=== PATIENT | female | born 1975 | race American Indian/Alaskan Native ===

== ENCOUNTER 2018-11-08 03:32 | Emergency (ER) | payer OTHER ==
[2018-11-08 03:32] VITALS: BMI 34.4
[2018-11-08] MEDS ORDERED: Potassium Chloride 20 mEq ER Tab PO ONE (03:51)
[2018-11-08] MEDS ORDERED: Sodium Chloride 0.9% 1,000 ML IV ONE (03:57)
[2018-11-08] MEDS ORDERED: DiphenhydrAMINE 50 mg/ml Inj IVP STA ×2 (04:25→05:54)
[2018-11-08 04:27] LABS: BASO % 0.5 % (0.0-2.0); EOS # 0.1 K/uL (0.0-0.7); EOS % 3.4 % (0.0-4.0); HEMOGLOBIN 11.7 g/dL (11.0-16.0); LYMPH # 1.8 K/uL (1.0-4.3); LYMPH % 41.9 % (20.0-40.0); MEAN CELL VOLUME 72.6 fL (81.0-99.0); MEAN CORPUSCULAR HGB CONC 31.6 g/dL (33.0-37.0); MEAN PLATELET VOLUME 8.3 fL (7.2-11.7); MONO # 0.4 K/uL (0.0-0.8); MONO % 8.4 % (0.0-10.0); NEUT % 45.8 % (50.0-75.0); NRBC % 0.1 % (0.0-2.0); RBC 5.1 Mil/uL (3.80-5.20); RED CELL DISTRIBUTION WIDTH 15.6 % (11.5-14.5); WHITE BLOOD COUNT 4.4 K/uL (4.8-10.8)
[2018-11-08] MEDS ORDERED: DiphenhydrAMINE 50 mg/ml Inj ONE ×2 (04:29→05:56)
[2018-11-08 04:38] LABS: HCG,QUALITATIVE URINE NEGATIVE (NEGATIVE)
[2018-11-08 04:40] LABS: SQUAMOUS EPITHIAL 4 /hpf (0-5); URINE BACTERIA RARE (<OCC); URINE BILIRUBIN NEGATIVE (NEGATIVE); URINE BLOOD 1+ (NEGATIVE); URINE CLARITY Hazy (Clear); URINE COLOR Yellow (YELLOW); URINE GLUCOSE (UA) NORMAL (Normal); URINE LEUKOCYTE ESTERASE 1+ Leu/uL (Negative); URINE PROTEIN NEGATIVE (NEGATIVE); URINE UROBILINOGEN NORMAL mg/dL (0.2-1.0)
[2018-11-08 04:47] LABS: BLOOD UREA NITROGEN 10 mg/dL (7-17); CALCIUM 9.7 mg/dl (8.6-10.4); GFR NON-AFRICAN AMERICAN > 60; LIPASE 136 U/L (23-300)
--- NOTE | 2018-11-08 04:52 | C.PDOC ---
History Of Present Illness 43 year old female presents to the ER with a complaint of left flank pain that radiates to the LLQ for the past 2 days associated with nausea and vomiting. Patient has past Hx of kidney stone, kidney infection, and cysts removed from kidneys in the past. Denies dysuria, hematuria, or fever. Time Seen by Provider: 11/08/18 03:46 Chief Complaint (Nursing): Back Pain History Per: Patient History/Exam Limitations: no limitations Onset/Duration Of Symptoms: Days (2) Current Symptoms Are (Timing): Still Present Quality Of Discomfort: Unable To Describe Recent travel outside of the [place]: No Past Medical History Reviewed: Historical Data, Nursing Documentation, Vital Signs Vital Signs: Last Vital Signs Temp 98.3 F 11/08/18 03:41 Pulse 90 11/08/18 03:41 Resp 14 11/08/18 03:41 BP 130/85 11/08/18 03:41 Pulse Ox 98 11/08/18 03:41 - Medical History PMH: Anemia, Crohn's Disease (states she was tested but not diagnosed), Gastritis, Gall Bladder Disease, Kidney Stones (Lt. renal cyst), Chronic Kidney Disease Surgical History: Cholecystectomy, Endoscopy - [facility] Procedures NEBULIZER THERAPY (10/29/07) Family History: States: Unknown Family Hx - Social History Hx Tobacco Use: No Hx Alcohol Use: No Hx Substance Use: No - Immunization History Hx Tetanus Toxoid Vaccination: No Hx Influenza Vaccination: No Hx Pneumococcal Vaccination: Yes Review Of Systems Constitutional: Negative for: Fever, Chills Gastrointestinal: Positive for: Nausea, Vomiting Genitourinary: Negative for: Dysuria, Hematuria Musculoskeletal: Positive for: Other (Left flank pain radiating to LLQ) Physical Exam - Physical Exam Appears: Non-toxic Skin: Normal Color, Warm, Dry Head: Atraumatic, Normacephalic Eye(s): bilateral: Normal Inspection Oral Mucosa: Moist Chest: Symmetrical, No Tenderness Cardiovascular: Rhythm Regular Respiratory: Normal Breath Sounds, No Rales, No Rhonchi, No Wheezing Gastrointestinal/Abdominal: Soft, Tenderness (LLQ, suprapubic), No Guarding, No Rebound Back: CVA Tenderness (Left) Neurological/Psych: Oriented x3, Normal Speech ED Course And Treatment - Laboratory Results Result Diagrams: 11/08/18 04:22 11/08/18 04:22 O2 Sat by Pulse Oximetry: 98 (Room air) Pulse Ox Interpretation: Normal - CT Scan/US CT abd/pel Other Rad Studies (CT/US): Read By Radiologist, Radiology Report Reviewed CT/US Interpretation: CT SCAN OF THE ABDOMEN AND PELVIS WITHOUT ORAL OR IV CONTRAST. CLINICAL INDICATION: Left-sided abdominal pain. TECHNIQUE: Axial and reformatted sagittal and coronal images of the abdomen pelvis obtained without IV contrast administration. COMPARISON: 10/17/2016. FINDINGS: The visualized lung bases are unremarkable. Normal unenhanced liver. Surgically absent gallbladder and nondilated extrahepatic biliary system. Normal unenhanced spleen. Normal pancreas. . Normal bilateral adrenal glands. Normal size of the right kidney. There is no right renal mass. There are no right renal calculi. There is no right hydronephrosis. Normal visualized right ureter. Normal size of the left kidney. There is no left renal mass. There are no left renal calculi. There is mild left hydronephrosis. Normal visualized left ureter. Normal visualized stomach. Normal small intestine. Uncomplicated diverticulosis of the colon. The appendix is visualized and appears normal. There is no demonstrated peritoneal fluid. Normal abdominal aorta. Normal inferior vena cava. Normal retroperitoneum. . Normal urinary bladder. There is no pelvic mass lesion or lymphadenopathy. There is no pelvic fluid. . Normal abdominal wall. Normal osseous structures. IMPRESSION: Mild left hydronephrosis, unchanged. 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 Progress Note: Blood work, urinalysis, and CT abd/pel ordered, results were reviewed with no acute symptoms. IV fluids, zofran, toradol administered. Patient is requesting benadryl for itching due to her chronic eczema. Pt is resting comfortably in the ER in no acute distress, tolerating PO, vitals are stable, will discharge home with Rx and instructions to follow up with PMD/ Urologist or return if symptoms worsen. Reevaluation Time: 06:15 Reassessment Condition: Improved Disposition Counseled Patient/Family Regarding: Diagnosis, Need For Followup, Rx Given - Disposition Referrals: Jensen Drake MD [Staff Provider] - Disposition: HOME/ ROUTINE Disposition Time: 06:09 Condition: STABLE Additional Instructions: Increase PO fluids Take medications as directed Follow up with Urologist Return to ER if worse Prescriptions: Naproxen [Naprosyn] 1 tab PO BID PRN #20 tab PRN Reason: Pain Ondansetron ODT [Zofran ODT] 1 odt PO BID PRN #6 odt PRN Reason: Nausea/Vomiting Instructions: Low Back Pain in Adults Forms: [facility] (Tunisian) - Clinical Impression Clinical Impression: Left flank pain - PA / ELECTRIC METER INSPECTOR / Resident Statement MD/DO has reviewed & agrees with the documentation as recorded. - Scribe Statement The provider has reviewed the documentation as recorded by the Scribdiana Serrano All medical record entries made by the Jewelsibdiana were at my direction and personally dictated by me. I have reviewed the chart and agree that the record accurately reflects my personal performance of the history, physical exam, medical decision making, and the department course for this patient. I have also personally directed, reviewed, and agree with the discharge instructions and disposition.
[2018-11-08] MEDS ORDERED: Morphine 4 MG/ML VIAL IV ONE (05:04)
[2018-11-08 05:42] LABS: ALB/GLOB RATIO 1.3 (1.0-2.1); ALT/SGPT 16 U/L (9-52); AST/SGOT 33 U/L (14-36)
[2018-11-08 05:59] VITALS: BP 136/86; PULSE 91; RESP 19; TEMP 97.7
[2018-11-08 06:11] VITALS: O2SAT 98
--- NOTE | 2018-11-08 09:42 | CT ---
Date of service: 11/08/2018 PROCEDURE: CT Abdomen and Pelvis without intravenous contrast HISTORY: left flank pain COMPARISON: 10/17/2016. TECHNIQUE: CT scan of the abdomen and pelvis was performed without administration of intravenous contrast. Oral contrast was not administered. Coronal and sagittal reformatted images were obtained. . Radiation dose: Total exam DLP = 847.25 mGy-cm. This CT exam was performed using one or more of the following dose reduction techniques: Automated exposure control, adjustment of the mA and/or kV according to patient size, and/or use of iterative reconstruction technique. FINDINGS: LOWER THORAX: The visualized lungs are clear. LIVER: Normal in size. There is redemonstration of a well-circumscribed round subcentimeter hypodensity in the left hepatic lobe stable since the prior examination. No intrahepatic ductal dilatation. GALLBLADDER AND BILE DUCTS: Surgically absent. PANCREAS: Normal in size. No ductal dilatation. SPLEEN: Normal in size. ADRENALS: Normal in size. No discrete nodule. KIDNEYS AND URETERS: The right kidney is normal in size without nephrolithiasis. No hydronephrosis. The left kidney is normal in size. There is no nephrolithiasis. There is redemonstration of parapelvic cyst versus focal hydronephrosis versus dilated bob in the lower pole of the left kidney. VASCULATURE: No aortic aneurysm. No aortic atherosclerotic calcification or mural plaque present. BOWEL: The small bowel loops are normal in caliber. The colon is normal in size. There is large amount of stool in the colon. No bowel dilatation or wall thickening. No bowel obstruction. APPENDIX: Normal appendix. PERITONEUM: No free fluid. No free air. LYMPH NODES: No enlarged lymph nodes. BLADDER: Well distended and grossly normal in appearance. REPRODUCTIVE: The uterus is normal in size BONES: No acute fracture. OTHER FINDINGS: None. IMPRESSION: No acute abdominal or pelvic abnormality. Little interval change in left lower pole parapelvic cyst versus hydronephrosis versus dilated bob. Constipation. No bowel obstruction. A preliminary report was provided by [facility].
== END 2018-11-08 06:44 | disposition home or self-care (01) ==
LOC: C.ER 03:32
DX: R10.9 Unspecified abdominal pain (principal); K50.90 Crohn's disease, unspecified, without complications; N18.9 Chronic kidney disease, unspecified; Z87.442 Personal history of urinary calculi
CPT/HCPCS: 74176; 80053; 81001; 83690; 84703; 85025; 96361; 96374; 96375; 96376; 99284; J1200; J1885; J2270; J2405; J7030

== ENCOUNTER 2019-01-23 07:12 | Emergency (ER) | payer OTHER ==
[2019-01-23 07:12] VITALS: BMI 34.4
[2019-01-23] MEDS ORDERED: Sodium Chloride 0.9% 1,000 ML IV ONE (08:21)
[2019-01-23 08:23] LABS: HCG,QUALITATIVE URINE NEGATIVE (NEGATIVE)
--- NOTE | 2019-01-23 08:25 | C.PDOC ---
History Of Present Illness 43 year old female, whose past medical history includes chronic left kidney hydronephrosis, left ovarian cyst torsion s/p oophorectomy, presents to the ED for evaluation of left flank pain that radiates to her left lower abdominal wall since last night. Patient also reports associated nausea and one episode of non- bilious vomiting. Patient reports history of similar symptoms in the past. She denies fever, chills, recent illness, neck pian, CP, SOB, dyspnea, diaphoreis, palpitation, back pain, hematemesis, diarrhea, UTI symptoms. Appears comfortable, not in any apparent distress. Time Seen by Provider: 01/23/19 07:29 Chief Complaint (Nursing): Back Pain History Per: Patient History/Exam Limitations: no limitations Onset/Duration Of Symptoms: Hrs Current Symptoms Are (Timing): Still Present Quality Of Discomfort: "Pain" Additional History Per: Patient Past Medical History Reviewed: Historical Data, Nursing Documentation, Vital Signs Vital Signs: Last Vital Signs Temp 98.3 F 01/23/19 07:16 Pulse 100 H 01/23/19 07:16 Resp 20 01/23/19 07:16 BP 143/96 H 01/23/19 07:16 Pulse Ox 100 01/23/19 07:16 - Medical History PMH: Anemia, Crohn's Disease (states she was tested but not diagnosed), Gastritis, Gall Bladder Disease, Kidney Stones (Lt. renal cyst), Chronic Kidney Disease Surgical History: Cholecystectomy, Endoscopy - [facility] Procedures NEBULIZER THERAPY (10/29/07) Family History: States: Unknown Family Hx - Social History Hx Tobacco Use: No Hx Alcohol Use: No Hx Substance Use: No - Immunization History Hx Tetanus Toxoid Vaccination: No Hx Influenza Vaccination: No Hx Pneumococcal Vaccination: Yes (3 years) Review Of Systems Constitutional: Negative for: Fever, Chills Gastrointestinal: Positive for: Nausea, Vomiting, Abdominal Pain (lower abdomen ). Negative for: Diarrhea Genitourinary: Negative for: Dysuria, Frequency, Hematuria Musculoskeletal: Positive for: Other (left flank pain ) Physical Exam - Physical Exam Appears: Well, Non-toxic, No Acute Distress Skin: Normal Color, Warm, Dry Head: Normacephalic Eye(s): bilateral: PERRL Nose: No Flaring Oral Mucosa: Moist Neck: Supple Cardiovascular: Rhythm Regular, No Murmur Respiratory: No Decreased Breath Sounds, No Accessory Muscle Use, No Rales, No Rhonchi, No Stridor, No Wheezing Gastrointestinal/Abdominal: Soft, No Tenderness, No Guarding, No Rebound Back: Other (left flank tenderness) Extremity: Normal ROM, Capillary Refill (less than 2 seconds ) Neurological/Psych: Oriented x3, Normal Speech, Normal Cognition ED Course And Treatment - Laboratory Results Result Diagrams: 01/23/19 09:57 01/23/19 09:57 Lab Results: Urine HCG, Qual Negative (NEGATIVE) 01/23/19 08:10 Urine HCG, Qual Negative (NEGATIVE) 01/23/19 08:10 Lab Interpretation: No Changes Compared To Prior Results O2 Sat by Pulse Oximetry: 100 (on RA) Pulse Ox Interpretation: Normal - CT Scan/US Renal US, left Other Rad Studies (CT/US): Radiology Report Reviewed CT/US Interpretation: Creator : Deirdre Rod MD. Dictator : Deirdre Rod MD. Certified Bench Jeweler Technician : Charter Pilot : Deirdre Rod MD. Approver2 : Report Date : 01/23/2019 10:11:23. My Comment : . Date of service: 01/23/2019. PROCEDURE: Ultrasound of the Kidneys. HISTORY: Left flank pain, hx of "stable hydronephrosis". COMPARISON: None available. TECHNIQUE: Grayscale imaging was performed. FINDINGS: RIGHT KIDNEY: Measures: 11.1 cm. Normal in size, contour and echogenicity. No stone, solid mass lesion or hydronephrosis visualized. LEFT KIDNEY: Measures: 12.3 cm. Normal in size, contour and echogenicity. No stone, cyst or solid mass lesion. There is mild left hydronephrosis. OTHER FINDINGS: None. IMPRESSION: Mild left hydronephrosis. No left nephrolithiasis. No right nephrolithiasis or hydronephrosis. Progress Note: Bloodwork, urinalysis, US Renal ordered and reviewed. Benadryl I NUTRITIONAL SERVICES DIRECTOR, Toradol IVP, Zofran IVP and IV Fluids given. Pt was OBS in ED for 3 hours and remained stable. On re-eval, pt is afebrile, hemodynamicaly stable. Non- toxic. Pt was able tolerate PO well in ED, (-) vomiting. ABd: benign, (-) guarding, (-) rebound, (-) localzied tenderness. Back: (-) CVA tenderness. Neuorlogicaly intact. Blood work review, stable anemia noted, no other actute abnormalities. UA- normal study. Renal US review and appears without new acute pathology, mild Left hydronephrosis, similar to previous findings . results review and discussed with pt. Pt advised. ref. to F/u with PMD, Biostatistics Professor In 2-3 days for re-evaluation. return if any new changes. Pt understand and agrees with plan. Disposition Counseled Patient/Family Regarding: Studies Performed, Diagnosis, Need For Followup - Disposition Referrals: Samia Maldonado MD [Staff Provider] - Joe Stein MD [Staff Provider] - Disposition: HOME/ ROUTINE Disposition Time: 10:10 Condition: STABLE Additional Instructions: Encourage fluid Follow up with Nephrology in 2-3 days for re-evaluation. Return if any worsening or new changes Instructions: Hydronephrosis in Adults, Flank Pain Forms: [facility] (Arabic) - Clinical Impression Clinical Impression: Left flank pain, Hydronephrosis - PA / INTERPRETER DEAF / Resident Statement MD/DO has reviewed & agrees with the documentation as recorded. - Scribe Statement The provider has reviewed the documentation as recorded by the Scribe (Minerva Eaton) All medical record entries made by the Scribe were at my direction and persona lly dictated by me. I have reviewed the chart and agree that the record accurately reflects my personal performance of the history, physical exam, medical decision making, and the department course for this patient. I have also personally directed, reviewed, and agree with the discharge instructions and disposition.
[2019-01-23 08:29] LABS: SQUAMOUS EPITHIAL 4 /hpf (0-5); URINE BILIRUBIN NEGATIVE (NEGATIVE); URINE BLOOD 1+ (NEGATIVE); URINE CLARITY Hazy (Clear); URINE COLOR Yellow (YELLOW); URINE GLUCOSE (UA) NORMAL (Normal); URINE LEUKOCYTE ESTERASE NEG Leu/uL (Negative); URINE PROTEIN NEGATIVE (NEGATIVE); URINE UROBILINOGEN NORMAL mg/dL (0.2-1.0)
[2019-01-23] MEDS ORDERED: DiphenhydrAMINE 50 mg/ml Inj IVP STA (08:45)
[2019-01-23] MEDS ORDERED: DiphenhydrAMINE 50 mg/ml Inj ONE (08:45)
[2019-01-23] MEDS ORDERED: Sodium Chloride 0.9% 1,000 ML ONE (08:53)
[2019-01-23 09:06] LABS: PROTHROMBIN TIME 10.8 SECONDS (9.7-12.2)
[2019-01-23 10:06] VITALS: BP 137/82; PULSE 87; RESP 18; TEMP 97.8
[2019-01-23 10:08] LABS: BASO % 0.4 % (0.0-2.0); EOS # 0.3 K/uL (0.0-0.7); EOS % 5.3 % (0.0-4.0); HEMOGLOBIN 10.9 g/dL (11.0-16.0); LYMPH % 39.7 % (20.0-40.0); MEAN CELL VOLUME 73.9 fL (81.0-99.0); MEAN CORPUSCULAR HEMOGLOBIN 22.6 pg (27.0-31.0); MEAN CORPUSCULAR HGB CONC 30.6 g/dL (33.0-37.0); MEAN PLATELET VOLUME 8.1 fL (7.2-11.7); MONO # 0.5 K/uL (0.0-0.8); MONO % 9.7 % (0.0-10.0); NEUT # 2.3 K/uL (1.8-7.0); NEUT % 44.9 % (50.0-75.0); NRBC % 0.2 % (0.0-2.0); RBC 4.81 Mil/uL (3.80-5.20); RED CELL DISTRIBUTION WIDTH 15.1 % (11.5-14.5); WHITE BLOOD COUNT 5.1 K/uL (4.8-10.8)
[2019-01-23 10:09] VITALS: O2SAT 100
--- NOTE | 2019-01-23 10:15 | US ---
Date of service: 01/23/2019 PROCEDURE: Ultrasound of the Kidneys HISTORY: Left flank pain, hx of "stable hydronephrosis" COMPARISON: None available. TECHNIQUE: Grayscale imaging was performed. FINDINGS: RIGHT KIDNEY: Measures: 11.1 cm. Normal in size, contour and echogenicity. No stone, solid mass lesion or hydronephrosis visualized. LEFT KIDNEY: Measures: 12.3 cm. Normal in size, contour and echogenicity. No stone, cyst or solid mass lesion. There is mild left hydronephrosis. OTHER FINDINGS: None. IMPRESSION: Mild left hydronephrosis. No left nephrolithiasis. No right nephrolithiasis or hydronephrosis.
[2019-01-23 10:21] LABS: ALB/GLOB RATIO 1.2 (1.0-2.1); ALBUMIN 4.6 g/dL (3.5-5.0); ALT/SGPT 16 U/L (9-52); AST/SGOT 32 U/L (14-36); BLOOD UREA NITROGEN 11 mg/dL (7-17); CALCIUM 9.8 mg/dl (8.6-10.4); GFR NON-AFRICAN AMERICAN > 60; LIPASE 122 U/L (23-300)
== END 2019-01-23 11:05 | disposition home or self-care (01) ==
LOC: C.ER 07:12
DX: N13.30 Unspecified hydronephrosis (principal); R10.30 Lower abdominal pain, unspecified
CPT/HCPCS: 76770; 80053; 81001; 83690; 84703; 85025; 85610; 85730; 96361; 96374; 96375; 99284; J1200; J1885; J2405; J7030